=== PATIENT | female | born 1970 | race African-American/Black ===

== ENCOUNTER 2016-11-18 | Emergency (ER) | payer SELFPAY ==
[~2016-11-18] VITALS: Ht 167.6 cm; Wt 131.5 kg
[~2016-11-18] MED LIST: ASPIR 8181 MG ORAL; LISINOPRIL10 MG ORAL; METFORMIN HCL500 M1 ORAL
[2016-11-18] MEDS ORDERED: Norco 5mg/325mg tab ORAL ONE (00:15)
[2016-11-18] MEDS ORDERED: IBUPROFEN600 MG ORAL (00:43)
[2016-11-18] MEDS ORDERED: HYDROCODON-ACE1 EA15 ORAL (00:43)
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
[2016-11-18 00:50] VITALS: BP 167/104
--- NOTE | 2016-11-18 08:47 | Diagnostic Imaging Report ---
Indications: Trauma, pain Technique: Continuous helical CT imaging of the brain was performed with automatic exposure control on a Siemens sensation [address] scanner. Axial and coronal images were reconstructed at 5 mm slice thickness and interval. CTDI volume(s): 70 mGy Total DLP: 1459 mGy-cm Findings: Comparison: None. Intracranial anatomy is unremarkable. No evidence of mass or hemorrhage, other attenuation abnormality, mass effect, midline shift, hydrocephalus or increased intracranial pressure. Bone window images are unremarkable. Small polypoid soft tissue density in right maxillary sinus. Visualized paranasal sinuses and mastoid air cells are otherwise clear. No overlying soft tissue abnormalities. IMPRESSION: Right maxillary sinus polyp versus retention cyst Otherwise negative noncontrast CT scan of the brain --no evidence of acute injury. This correlates with [facility] preliminary report. The CT scanner at [facility] is accredited by the [employer] and the scans are performed using protocols designed to limit radiation exposure to as low as reasonably achievable to attain images of sufficient resolution adequate for diagnostic evaluation.
== END 2016-11-18 00:50 | disposition home or self-care (01) ==
LOC: EDBD → EMR 00:15
DX: S00.03XA Contusion of scalp, initial encounter (principal); S00.01XA Abrasion of scalp, initial encounter; V43.52XA Car driver injured in collision with other type car in traffic accident, initial encounter; Y92.410 Unspecified street and highway as the place of occurrence of the external cause; R51 Headache; I10 Essential (primary) hypertension; E11.9 Type 2 diabetes mellitus without complications
CPT/HCPCS: 70450; 99284